=== PATIENT | female | born 1950 | race Native Hawaiian/Other Pacific Islander ===

== ENCOUNTER 2019-04-08 12:58 | Emergency (ER) | payer MEDICARE ==
--- NOTE | 2019-04-08 14:13 | XRAY Report ---
Reason: cough Procedure Date: 04/08/2019 Accession Number: [id number] / [id number] Procedure: XR - Chest 2 View X-Ray CPT Code: 97160 FULL RESULT: EXAM: CHEST RADIOGRAPHY EXAM DATE: 04/08/2019 01:53 PM. CLINICAL HISTORY: Cough. COMPARISON: None. TECHNIQUE: 2 views. FINDINGS: Lungs/Pleura: No focal opacities evident. No pleural effusion. No pneumothorax. Normal volumes. Mediastinum: Heart and mediastinal contours are unremarkable. Other: None. IMPRESSION: No focal consolidation. RADIA
--- NOTE | 2019-04-08 14:19 | ED Physician Documentation ---
History of Present Illness - Stated complaint Stated Complaint: COUGH - Chief complaint Chief Complaint: Resp - History obtained from History obtained from: Patient - History of Present Illness Timing: How many days ago (5) Quality: moderate, nonproductive Radiates to: does not radiate Improved by: nothing Worsened by: coughing Associated symptoms: no nausea, vomiting, no chest pain, no leg pain or swelling. no fever - Treatment prior to arrival Treatment prior to arrival: none - Additonal information Additional information: Reports multiple sick contacts on a cruise ship recently, all with a cough. Review of Systems Ten Systems: 10 systems reviewed and negative Constitutional: denies: Fever, Chills Nose: denies: Rhinorrhea / runny nose, Congestion Throat: reports: Sore throat. denies: Swollen tonsils Cardiac: denies: Chest pain / pressure, Pedal edema Respiratory: reports: Cough. denies: Dyspnea, Hemoptysis, Wheezing GI: denies: Abdominal Pain, Nausea, Vomiting Skin: denies: Rash Musculoskeletal: denies: Extremity swelling Neurologic: denies: Generalized weakness PD PAST MEDICAL HISTORY - Past Medical History Past Medical History: Yes Respiratory: Pneumonia - Past Surgical History Past Surgical History: No - Present Medications Home Medications: Ambulatory Orders Medication Instructions Recorded Confirmed Aspirin Chewable [St Doyle 81 mg PO DAILY 04/08/19 04/08/19 Aspirin] Benzonatate [Tessalon Perle] 100 - 200 mg PO TID PRN #30 capsule 04/08/19 - Allergies Allergies/Adverse Reactions: Allergies Allergy/AdvReac Type Severity Reaction Status Date / Time No Known Drug Allergies Allergy Verified 04/08/19 13:11 - Social History Does the pt smoke?: No Smoking Status: Never smoker Does the pt drink ETOH?: No Does the pt have substance abuse?: No PD ED PE NORMAL - Vitals Vital signs reviewed: Yes - General General: Alert and oriented X 3, No acute distress, Well developed/nourished - HEENT HEENT: Atraumatic, PERRL, Moist mucous membranes, Pharynx benign, Dentition benign - Neck Neck: Supple, no meningeal sign - Cardiac Cardiac: RRR, No murmur, No gallop, No rub - Respiratory Respiratory: No respiratory distress, Clear bilaterally, Other (no wheezes rales or rhonchi) - Abdomen Abdomen: Soft, Non tender, Non distended - Female Female : Deferred - Rectal Rectal: Deferred - Derm Derm: Normal color, Warm and dry, No rash - Extremities Extremities: No deformity - Neuro Neuro: Alert and oriented X 3 Eye Opening: Spontaneous Motor: Obeys Commands Verbal: Oriented GCS Score: 15 - Psych Psych: Normal mood, Normal affect Results - Vitals Vitals: Vital Signs - 24 hr 04/08/19 13:08 Temperature 36.2 C L Heart Rate 82 Respiratory 18 Rate Blood Pressure 124/57 L O2 Saturation 98 Oxygen O2 Source Room air PD MEDICAL DECISION MAKING - ED course Complexity details: reviewed results, considered differential, d/w patient, d/w family ED course: DDx - pneumonia, URI, bronchitis, asthma, pleural effusion 68 y/o F with cough for 5 days, nonproductive, no fever. Cxr negative for acute disease. Pt well appearing likely viral URI or bronchitis. Continue supportive care at home. Departure - Departure Disposition: 01 Home, Self Care Clinical Impression: Cough in adult, Bronchitis Condition: Stable Record reviewed to determine appropriate education?: Yes Instructions: ED Upper Resp Infec No Abx Tx Follow-Up: your, doctor [Other] - As Needed Prescriptions: Benzonatate [Tessalon Perle] 100 - 200 mg PO TID PRN #30 capsule PRN Reason: Cough Comments: Your symptoms are likely due to a viral URI or bronchitis. Your xray did not show any evidence of pneumonia and your breath sounds here were normal. You can try tessalon perles for cough and follow up with your doctor if symptoms persist. A cough like this can last several weeks but hopefully will improve with the tessalon perles. Return to the ED if you have difficulty breathing.
[2019-04-08 14:28] VITALS: BP 152/85
== END 2019-04-08 14:30 | disposition home or self-care (01) ==
LOC: ED 12:58
DX: J40 Bronchitis, not specified as acute or chronic (principal); Z79.82 Long term (current) use of aspirin
CPT/HCPCS: 71046; 99283